=== PATIENT | female | born 1965 | race Caucasian/White ===

== ENCOUNTER → 2023-05-08 17:16 | Outpatient (REF) | payer BC, SELFPAY | LOC: HWWDC 17:16 | PROVIDERS: ATTENDING PHYSICIAN Obstetrics & Gynecology; FAMILY PHYSICIAN Internal Medicine | DX: Z12.31 Encounter for screening mammogram for malignant neoplasm of breast (principal) | CPT/HCPCS: 77063; 77067 ==

== ENCOUNTER → 2024-05-08 09:48 | Outpatient (REF) | payer BC, SELFPAY | LOC: HWWDC 09:48 | PROVIDERS: ATTENDING PHYSICIAN Obstetrics & Gynecology; FAMILY PHYSICIAN Internal Medicine | DX: Z12.31 Encounter for screening mammogram for malignant neoplasm of breast (principal) | CPT/HCPCS: 77063; 77067 ==

== ENCOUNTER → 2024-06-10 14:34 | Outpatient (REF) | payer BC, SELFPAY | LOC: HWRAD 14:34 | PROVIDERS: ATTENDING PHYSICIAN Internal Medicine Rheumatology; FAMILY PHYSICIAN Internal Medicine | DX: M81.0 Age-related osteoporosis without current pathological fracture (principal) | CPT/HCPCS: 77080 ==

== ENCOUNTER 2024-06-21 14:44 | Emergency (ER) | payer BC, SELFPAY ==
[2024-06-21 14:45] VITALS: BP 125/79
[2024-06-21 15:21] VITALS: BMI 23.4
--- NOTE | 2024-06-21 15:47 | ED.GENMED ---
History of Present Illness
General
Chief Complaint: Musculo-Skeletal Complaint
Time Seen by Provider: 06/21/24 15:27
History of Present Illness
History of Present Illness:
58-year-old female presents the emergency department for evaluation of left wrist pain after a fall while walking her dog. Fell on outstretched wrist. Pain to the dorsal ulnar aspect of the wrist. Prior history of ORIF to the left radius. No
distal paresthesias
Past History
Past History
ED Past Medical History: Asthma
Social History
Tobacco: Non-smoker
Living: with family
Employment: Employed
Review of Systems
Review of Systems
Allergies reviewed?: Yes
All Other Systems: ROS reviewed and negative except as documented in HPI and ROS
Phy Exam
Physical Exam
Physical Exam:
GEN: Well appearing, NAD, WDWN
HEENT: Oral mucosa moist, no scleral icterus
Cardiac: Regular rate
Lung: No respiratory distress, no tachypnea
MSK: No gross deformity or injuries, mild swelling and ecchymosis to the left dorsal ulnar wrist, normal range of motion of the left wrist in all jones with pain elicited through passive flexion and active extension
Skin: Good color, no pallor or jaundice, no rashes
Neuro: AO x3, moves all extremities freely
Psych: Calm, cooperative
Course
Orders/Labs/Results
Orders:
Orders
06/21/24 14:45
Wrist, Left 3 Views CR [CR Wrist - Left Min 3 Views] Urgent
Comment:
Reason For Exam: pain
Vital Signs
Initial and Last Documented VS:
Initial Vital Signs
Temp Pulse Resp BP Pulse Ox
98.1 F 65 16 125/79 99
06/21/24 14:45 06/21/24 14:45 06/21/24 14:45 06/21/24 14:45 06/21/24 14:45
Last Documented Vital Signs
Temp Pulse Resp BP Pulse Ox
98.1 F 65 16 125/79 99
06/21/24 14:45 06/21/24 14:45 06/21/24 14:45 06/21/24 14:45 06/21/24 14:45
MDM/Problems Addressed
MDM/Problems Addressed:
X-rays are unremarkable, likely partial extensor tendon injury, will place in wrist immobilizer, discussed supportive care
*Critical Care Note
Total Time (30-74mins, 75-104mins- exclusive of procedures): Not Applicable
ED Attending Note
-
Portions of this chart may have been created with voice recognition software.� Occasional wrong word or��sound alike� substitutions may have occurred due to the inherent limitations of voice recognition software.
Discharge Plan
Departure
Patient Disposition: Home (Routine Discharge)
Date of Disposition: 06/21/24
Time of Disposition: 15:49
Patient with high blood pressure during this ER visit?: No
Discharge Problem:
Left wrist sprain
Instructions: Sprain (DC)
Prescriptions:
No Action
hydrocodone-acetaminophen 5-325 mg tablet
1 tab PO Q6H PRN (Reason: pain) Qty: 14 0RF
Activity Restrictions/Additional Instructions:
Ice the wrist often for the next 2 to 3 days. Use the brace when awake and attempting to use the hand, you may remove for sleeping and showering purposes. Use ibuprofen as needed for pain. Follow-up with your hand specialist in 2 weeks if the
symptoms are not improving
Interventions
Interventions:
*Risk Screen - Suicide Last Done: 06/21/24 14:45
*General Assessment Last Done: 06/21/24 14:45
*Neglect/Abuse Screening Last Done: 06/21/24 14:45
*ED COVID-19 Vaccine History Last Done: 06/21/24 14:45
*Nursing Disposition Last Done: 06/21/24 16:04
ED-Musculoskeletal Assessment Last Done: 06/21/24 15:19
Discharge Date and Time
Discharge Date/Time: 06/21/24 16:05
Print Language: MALTESE
== END 2024-06-21 16:05 | disposition home or self-care (01) ==
LOC: EMR 14:44
PROVIDERS: EMERGENCY PHYSICIAN Emergency Medicine; FAMILY PHYSICIAN Internal Medicine
DX: S63.502A Unspecified sprain of left wrist, initial encounter (principal); W19.XXXA Unspecified fall, initial encounter; J45.909 Unspecified asthma, uncomplicated
CPT/HCPCS: 99283; 29125; 73110